=== PATIENT | female | born 1975 | race Caucasian/White ===

== ENCOUNTER → 2016-11-14 | Outpatient (REF) ==
[2016-11-14 12:02] LABS: THYROID STIMULATING HORMONE 23.8 uIU/mL (0.465-4.680)
== END ==
LOC: ZLAB.WCH 10:51
PROVIDERS: Internal Medicine Gastroenterology
DX: Z01.89 Encounter for other specified special examinations (principal)

== ENCOUNTER → 2016-11-19 | Outpatient (REF) | LOC: ZLAB.WCH 14:52 | DX: Z01.89 Encounter for other specified special examinations (principal) ==

== ENCOUNTER → 2018-01-11 | Outpatient (CLI) | payer MEDICAID | LOC: COL.RAD 09:37 | DX: R93.2 Abnormal findings on diagnostic imaging of liver and biliary tract (principal); K70.30 Alcoholic cirrhosis of liver without ascites; R16.0 Hepatomegaly, not elsewhere classified ==

== ENCOUNTER → 2018-03-22 | Outpatient (REF) ==
[2018-03-22 18:46] LABS: THYROID STIMULATING HORMONE 41.4 uIU/mL (0.465-4.680)
== END ==
LOC: ZLAB.WCH 18:04
PROVIDERS: Family Medicine
DX: Z01.89 Encounter for other specified special examinations (principal)

== ENCOUNTER 2018-05-17 13:54 | Emergency (ER) | payer MEDICAID ==
[~2018-05-17] VITALS: Ht 154.9 cm; Wt 84.1 kg
[2018-05-17 13:55] VITALS: TEMP 97.9
[2018-05-17] MEDS ORDERED: TIROSINT125 MC1 PO (14:12)
[2018-05-17 14:30] LABS: COLLECTION METHOD CLEAN CATCH
[2018-05-17 14:34] LABS: BASO # 0.1 (0.0-0.2); BASO % 0.7 % (0.0-2.0); EOS # 0.3 (0.0-0.7); EOS % 3.5 % (0-4.0); GRAN # 5.6 (1.4-6.5); GRAN % 67.2 % (42.2-75.2); HEMATOCRIT 42.7 % (37.0-47.0); HEMOGLOBIN 14.5 g/dl (12.5-16.0); LYMPH # 1.8 (1.2-3.4); LYMPH % 21.6 % (20.0-51.0); MEAN CELL VOLUME 95 fl (80.0-100.0); MEAN CORPUSCULAR HEMOGLOBIN 32 pg (27.0-31.0); MEAN CORPUSCULAR HGB CONC 34 g/dl (33.0-37.0); MONO # 0.6 (0.1-0.6); MONO % 6.6 % (1.7-9.3); PLATELET COUNT 198 K/mm3 (130-400); REDCELL DISTRIBUTION WIDTH-CV 13.2 % (11.5-14.5)
[2018-05-17 14:44] LABS: ALANINE AMINOTRANSFERASE 34 U/L (9-52); ALBUMIN 4.2 gm/dL (3.5-5.0); ALKALINE PHOSPHATASE 79 U/L (50-136); ANION GAP 11 mmol/L (7-16); AST,SGOT 27 U/L (15-37); BILIRUBIN,TOTAL 0.5 mg/dL (0.0-1.0); BLOOD UREA NITROGEN 13 mg/dL (7-17); CALCIUM 9.4 mg/dL (8.4-10.2); CARBON DIOXIDE 25 mmol/L (22-30); CHLORIDE 104 mmol/L (98-107); CREATININE, serum 0.73 mg/dL (0.52-1.25); GLUCOSE 102 mg/dL (74-106); LIPASE 176 U/L (23-300); MAGNESIUM 1.6 mg/dL (1.6-2.3); PHOSPHOROUS 3.9 mg/dL (2.5-4.5); POTASSIUM 3.6 mmol/L (3.4-5.0); SODIUM 140 mmol/L (137-145); TOTAL PROTEIN 7.3 gm/dL (6.4-8.2)
[2018-05-17 14:46] LABS: ALCOHOL(ethanol),MEDICAL < 10 mg/dL
[2018-05-17 14:54] LABS: MUCOUS Present /lpf; PH 5 (5-8); SQUAMOUS EPITHELIAL 0-2 /hpf; URINE APPEARANCE Clear; URINE BACTERIA None Seen /hpf; URINE BILIRUBIN Negative (NEGATIVE); URINE BLOOD 2+ (NEGATIVE); URINE COLOR Yellow; URINE GLUCOSE Negative (NEGATIVE); URINE KETONE Negative (NEGATIVE); URINE LEUKOCYTE ESTERASE Negative (NEGATIVE); URINE NITRATE Negative (NEGATIVE); URINE PROTEIN(semi-quant) Negative (NEGATIVE); URINE UROBILINOGEN Negative (NEGATIVE)
[2018-05-17 14:57] LABS: TROPONIN-I < 0.012 ng/mL (0.000-0.034)
[2018-05-17] MEDS ORDERED: PREDNISONE20 MG PO (15:11)
[2018-05-17] MEDS ORDERED: PROTONIX 40MG T40 MG PO (15:11)
[2018-05-17] MEDS ORDERED: ZITHROMAX 250M250 MG PO (15:11)
[2018-05-17 15:23] VITALS: BP 148/82; PULSE 78
== END 2018-05-17 15:25 | disposition home or self-care (01) ==
LOC: COL.ER 13:54
PROVIDERS: Emergency Medicine
DX: J40 Bronchitis, not specified as acute or chronic (principal); K29.70 Gastritis, unspecified, without bleeding; R07.89 Other chest pain; F17.210 Nicotine dependence, cigarettes, uncomplicated; Z90.710 Acquired absence of both cervix and uterus
CPT/HCPCS: J7030; J7512

== ENCOUNTER → 2018-08-13 | Outpatient (CLI) | payer MEDICAID ==
[~2018-08-13] MED LIST: PREDNISONE20 MG PO; PROTONIX 40MG T40 MG PO; TIROSINT125 MC1 PO; ZITHROMAX 250M250 MG PO
== END ==
LOC: COL.RAD 10:27
DX: K70.30 Alcoholic cirrhosis of liver without ascites (principal)

== ENCOUNTER → 2019-02-23 | Outpatient (REF) | LOC: ZLAB.WCH 17:39 | DX: Z01.89 Encounter for other specified special examinations (principal) ==